=== PATIENT | female | born 1955 | race Caucasian/White ===

== ENCOUNTER 2018-04-21 13:21 | Emergency (ER) | payer OTHER ==
[2018-04-21] MEDS ORDERED: OXYMETAZOLINE 30 ML NASAL SPRAY ONE (13:43)
[2018-04-21] MEDS ORDERED: SILVER NITRATE APPLICATOR 1 APPL TP ONE ×2 (14:11→14:12)
--- NOTE | 2018-04-21 14:39 | EDPHY ---
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 She is visiting from [facility] and just got off the plane today. She reports significant epistaxis from her right nostril over last 24 hr. She states no trauma or history of sinus surgery. REVIEW OF SYSTEMS: Aside from elements discussed in the HPI, a comprehensive 10-point review of systems was reviewed and is negative. PMH: Includes jugular clot, diabetes SOCIAL HISTORY: Lives in [facility], here to take care of her mother. PHYSICAL EXAM: General:Patient is alert, in no acute distress. ENT: Dried blood is present in the right nostril. Neck: Normal inspection. Full range of motion. Respiratory:No respiratory distress. Breath sounds normal bilaterally. Cardiovascular: Regular rate and rhythm. Strong peripheral pulses. Normal cap refill. Neuro: Oriented x3. Normal motor function. Normal sensory function. ED Course: This patient is quite particular about her course of treatment. Her initial expectation was that she would be seen by an ENT specialist who will perform a cautery here in the emergency department. I explained that ENT is on-call but available only in case of emergency. She was comfortable with the plan for initial attempt at cautery under my care here in the emergency department. I examined the inside of her nostril very carefully and found an area that seemed amenable to cauterization. This was performed using a silver nitrate stick. The patient tolerated this extremely well without any pain or discomfort. The patient was then observed in the emergency department for 30 min following which there was no recurrence of bleeding. I stressed to the patient numerous times that her enoxaparin use places her at very high risk for recurrence of the bleeding and recommended that we place packing in her nostril. The patient adamantly declines this as she is here to take care of her elderly mother and thinks this would cause further problems. She understands that there is risk that her epistaxis may recur and I have encouraged her to return to the emergency department should this happen. I have also refer her to ENT for definitive therapy later this week. General Time Seen by Provider: 04/21/18 13:39 Initial Vital Signs: Initial Vital Signs Temperature (C) 36.5 C 04/21/18 13:28 Heart Rate 85 04/21/18 13:28 Respiratory Rate 16 04/21/18 13:28 Blood Pressure 132/73 H 04/21/18 13:28 O2 Sat (%) 95 04/21/18 13:28 O2 Delivery Mode Room Air Allergies/Adverse Reactions: Sulfa (Sulfonamide Antibiotics) Allergy (Verified 04/21/18 13:27) Home Medications: Medication Instructions Recorded HCTZ (*) 04/21/18 Losartan Potassium 04/21/18 Lovenox 04/21/18 Metformin HCl 04/21/18 Propranolol Sr 04/21/18 Thyroid 04/21/18 Topamax 100MG (*) 04/21/18 novoLOG 04/21/18 Departure - Departure Disposition: Home, Routine, Self-Care Clinical Impression: Epistaxis Condition: Good Instructions: Nosebleed (ED) Additional Instructions: Followup with an ENT specialist within 72 hours. If bleeding recurs, place nose clip on your nose for 20 minutes. If a mild amount of blood is still flowing, try once more. If bleeding is moderate to severe, return to the ED. Referrals: CLAUDIO TINSLEY DO [Other] - As per Instructions Miles Davis MD [Medical Doctor] - As per Instructions
[2018-04-21 15:04] VITALS: BP 142/93
== END 2018-04-21 15:04 | disposition home or self-care (01) ==
PROC: 3E09XGC Introduction of Other Therapeutic Substance into Nose, External Approach (ICD-10-PCS; principal; 2018-04-21)
DX: R04.0 Epistaxis (principal); E11.9 Type 2 diabetes mellitus without complications; Z86.718 Personal history of other venous thrombosis and embolism; Z79.4 Long term (current) use of insulin; Z79.01 Long term (current) use of anticoagulants